=== PATIENT | female | born 1995 | race Caucasian/White ===

== ENCOUNTER 2022-12-03 14:43 | Emergency (ER) | payer SELFPAY ==
[2022-12-03 16:21] LABS: Urine Blood Trace-intact (Negative); Urine Glucose Negative (Negative); Urine Protein Negative (Negative); Urine Specific Gravity 1.015 (1.005-1.030)
[2022-12-03 16:30] LABS: Hematocrit 39.4 % (36.0-45.0); Lymphocytes % 33.3 % (15.3-44.8); MCV 89.9 fL (80-100); RBC Red Blood Cell Count 4.38 M/uL (3.86-4.86)
[2022-12-03 16:43] LABS: Albumin 3.8 g/dL (3.4-5.0); Bilirubin Total 0.3 mg/dL (0.2-1.0); Potassium 3.8 mmol/L (3.5-5.1); Protein, Total 6.9 g/dL (6.4-8.2)
[2022-12-03 17:10] LABS: Urine Specific Gravity/Preg 1.015 (1.005-1.030)
--- NOTE | 2022-12-03 18:48 | RAD REPORT ---
EXAM DESCRIPTION: CTAbdomen Pelvis W Contrast - 12/03/2022 6:27 pm CLINICAL HISTORY: Abdominal pain. ABD PAIN COMPARISON: CT ABD PELVIS W CONTRAST dated 03/19/2015 TECHNIQUE: Biphasic CT imaging of the abdomen and pelvis was performed with 100 ml non-ionic IV cont rast. All CT scans are performed using dose optimization technique as appropriate and may include automated exposure control or mA/KV adjustment according to patient size. FINDINGS: The lung bases are clear. The liver, spleen, pancreas, adrenal glands and kidneys are within normal limits. No bowel obstruction, free air, free fluid or abscess. The appendix is normal. No evidence of signi ficant lymphadenopathy. No suspicious bony findings. IMPRESSION: No acute intra-abdominal or pelvic finding.
--- NOTE | 2022-12-03 18:54 | ER ---
Nurse's Notes [facility] Name: Leslie Mosquera Age: 27 yrs Sex: Female : 1995 Arrival Date: 12/03/2022 Time: 14:46 Bed 14 Private MD: Diagnosis: Abdominal pain, Generalized Presentation: 12/03 15:05 Chief complaint: Patient states: "I haven't had a period since August. I've taken mb9 tests and they are all negative. I get ovarian cysts and my lower stomach hurts, more on the left side. I'm nauseous and super tired.". Coronavirus screen: At this time, the client does not indicate any symptoms associated with coronavirus-19. Ebola Screen: No symptoms or risks identified at this time. Initial Sepsis Screen: Does the patient meet any 2 criteria? No. Patient's initial sepsis screen is negative. Does the patient have a suspected source of infection? No. Patient's initial sepsis screen is negative. Risk Assessment: Do you want to hurt yourself or someone else? Patient reports no desire to harm self or others. Onset of symptoms was October 26, 2022. 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 - Social history:: Smoking status: Patient denies any tobacco usage or history of. Patient uses marijuana. Screenin:[address] [facility] ED Fall Risk Assessment (Adult) History of falling in the last 3 months, db including since admission No falls in past 3 months (0 pts) Confusion or Disorientation No (0 pts) Intoxicated or Sedated No (0 pts) Impaired Gait No (0 pts) Mobility Assist Device Used No (0 pt) Altered Elimination No (0 pt) Score/Fall Risk Level 0 - 2 = Low Risk Oriented to surroundings, Maintained a safe environment, Educated pt \\T\\ family on fall prevention, incl call for assistance when getting out of bed. Abuse screen: Denies threats or abuse. Denies injuries from another. Nutritional screening: No deficits noted. Tuberculosis screening: No symptoms or risk factors identified. Assessment: 16:52 Reassessment: Patient appears in no apparent distress at this time. Patient and/or db family updated on plan of care and expected duration. Pain level reassessed. Patient is alert, oriented x 3, equal unlabored respirations, skin warm/dry/pink. abdominal pain. states has not had a period since August. General: Appears in no apparent distress. comfortable, Behavior is calm, cooperative. Pain: Complains of pain in abdomen. Neuro: Level of Consciousness is awake, alert, obeys commands, Oriented to person, place, time, situation. GI: Abdomen is non-distended, Bowel sounds present X 4 quads. Abd is soft. Vital Signs: 15:05 BP 129 / 80; Pulse 99; Resp 18; Temp 97.2(O); Pulse Ox 100% ; Weight 74.84 kg; Height 5 mb9 ft. 4 in. ; Pain 8/10; 16:30 BP 93 / 52; Pulse 64; Resp 16; Pulse Ox 97% on R/A; db 15:05 Body Mass Index 28.32 (74.84 kg, 162.56 cm) mb9 15:05 Pain Scale: Adult mb9 ED Course: 14:46 Patient arrived in ED. mr 14:48 Mac Grant MD is Attending Physician. kdr 15:07 Triage completed. mb9 15:09 Arm band placed on. mb9 16:20 CBC with Diff Sent. bc6 16:20 CMP Sent. bc6 16:20 Lipase Sent. bc6 16:20 Initial lab(s) drawn, by dc, sent to lab. Inserted saline lock: 20 gauge in right bc6 antecubital area, using aseptic technique. 16:49 Dana Devlin, RN is Primary Nurse. db 18:29 CT Abd/Pelvis - IV Contrast Only In Process Unspecified. EDMS Administered Medications: No medications were administered Outcome: 18:54 Discharge ordered by . kdr Signatures: Dispatcher [employer] EDMS Mac Grant MD MD kdr Rivera, Mary mr Dana Devlin, RN RN Rachel Tijerina RN RN [facility] Rebecca Howard [facility] Corrections: (The following items were deleted from the chart) 15: 15:07 PSHx: None; mb9 mb9
--- NOTE | 2022-12-03 18:54 | EDPHYS ---
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 - Social history:: Smoking status: Patient denies any tobacco usage or history of. Patient uses marijuana. Vital Signs: 15:05 BP 129 / 80; Pulse 99; Resp 18; Temp 97.2(O); Pulse Ox 100% ; Weight 74.84 kg; Height 5 mb9 ft. 4 in. ; Pain 8/10; 16:30 BP 93 / 52; Pulse 64; Resp 16; Pulse Ox 97% on R/A; db 15:05 Body Mass Index 28.32 (74.84 kg, 162.56 cm) mb9 15:05 Pain Scale: Adult mb9 MDM: 18:54 Patient medically screened. kdr 12/03 15:17 Order name: IV Saline Lock; Complete Time: 16:20 kdr 12/03 15:17 Order name: Labs collected and sent; Complete Time: 16:20 kdr 12/03 15:17 Order name: CMP; Complete Time: 17:26 kdr 12/03 15:17 Order name: CBC with Diff; Complete Time: 17:26 kdr 12/03 15:17 Order name: Lipase; Complete Time: 17:26 kdr 12/03 16:21 Order name: Urine --Ancillary (enter results); Complete Time: 17:26 bd 12/03 16:21 Order name: Urine Dipstick-Ancillary; Complete Time: 17:26 EDMS 12/03 17:26 Order name: CT Abd/Pelvis - IV Contrast Only; Complete Time: 18:51 kdr Administered Medications: No medications were administered Disposition Summary: 12/03/22 18:54 Discharge Ordered Location: Home kdr Problem: an ongoing problem kdr Symptoms: have improved kdr Condition: Stable kdr Diagnosis - Abdominal pain, Generalized kdr Followup: kdr - With: Private Physician - When: 2 - 3 days - Reason: If symptoms return, Further diagnostic work-up, Recheck today's complaints, Continuance of care, Re-evaluation by your physician Forms: - Medication Reconciliation Form kdr - Thank You Letter kdr - Antibiotic Education kdr - Prescription Opioid Use kdr Signatures: Dispatcher [employer] EDMS Mac Grant MD MD kdr Rachel Back RN RN mb9 Corrections: (The following items were deleted from the chart) 15:09 15:07 PSHx: None; [id number] mb9
[2022-12-03] MEDS ORDERED: ONDANSETRON 4 MG/2 ML VIAL ONE (19:33)
== END 2022-12-03 19:35 | disposition home or self-care (01) ==
LOC: ER 14:43
DX: R10.84 Generalized abdominal pain (principal)
CPT/HCPCS: 36415; 74177; 80053; 81003; 81025; 83690; 85025; J2405; Q9967